=== PATIENT | female | born 1970 | race Caucasian/White ===

== ENCOUNTER 2016-10-20 15:48 | Emergency (ER) | payer OTHER ==
[~2016-10-20] VITALS: Ht 160 cm; Wt 100.3 kg
[2016-10-20 17:50] LABS: microscopic required? NO
[2016-10-20 17:59] LABS: BASOPHIL % 0.6 % (0-2); PLATELET COUNT 309 x10^3mcL (130-400)
[2016-10-20 18:01] LABS: RED CELL DISTRIBUTION WIDTH 15.1 % (11.5-14.5)
[2016-10-20 18:10] LABS: UA SPECIFIC GRAVITY 1.025 (1.005-1.035); urine erythrocyte NEGATIVE (NEGATIVE)
[2016-10-20 18:12] LABS: CALCIUM 8.6 mg/dL (8.5-10.1); CARBON DIOXIDE 25.5 mmol/L (21-32); CHLORIDE SERUM 103 mmol/L (98-107); CREATININE SERUM 0.7 mg/dL (0.6-1.0); GFR1 > 60 mL/min; GLUCOSE SERUM 286 mg/dL (74-106); POTASSIUM SERUM 3.9 mmol/L (3.5-5.1); SODIUM SERUM 136 mmol/L (136-145)
[2016-10-20 18:16] LABS: ALKALINE PHOSPHATASE 61 U/L (46-116); ALT/SGPT 41 U/L (14-59); AMYLASE 44 U/L (25-115); AST/SGOT 25 U/L (15-37); BILIRUBIN TOTAL 0.18 mg/dL (0.20-1.00); LIPASE 81 IU/L (73-393); TOTAL PROTEIN, SERUM 6.7 g/dL (6.4-8.2)
[2016-10-20 18:17] LABS: ALBUMIN 3.3 g/dL (3.4-5.0)
[2016-10-20 20:06] VITALS: BP 138/60
== END 2016-10-20 20:06 | disposition home or self-care (01) ==
LOC: ED 15:48
PROVIDERS: Emergency Medicine
DX: R53.1 Weakness (principal); R06.00 Dyspnea, unspecified
CPT/HCPCS: 83880; J1885; J2405; J7030

== ENCOUNTER 2019-01-27 17:59 | Emergency (ER) | payer OTHER ==
[~2019-01-27] VITALS: Ht 157.5 cm; Wt 93.9 kg
[2019-01-27 18:03] VITALS: Ht 157.5 cm; Wt 93.9 kg
[2019-01-27 23:47] VITALS: BP 143/86
== END 2019-01-27 23:47 | disposition home or self-care (01) ==
LOC: ED 17:59
DX: R10.9 Unspecified abdominal pain (principal); I10 Essential (primary) hypertension; E11.9 Type 2 diabetes mellitus without complications
CPT/HCPCS: J1885